=== PATIENT | female | born 1975 | race African-American/Black ===

== ENCOUNTER 2017-02-07 12:58 | Emergency (ER) | payer SELFPAY ==
[~2017-02-07] VITALS: Ht 175.3 cm; Wt 105.7 kg
[2017-02-07] MEDS ORDERED: VENL150C6 PO (13:16)
[2017-02-07] MEDS ORDERED: IBUPROFEN 400 MG TABLET. PO ONE (14:30)
[2017-02-07 14:31] VITALS: BP 139/94
--- NOTE | 2017-02-07 14:53 | RAD ---
Right upper extremity venous ultrasound, 02/07/2017: History: Right arm pain Duplex evaluation of the major veins of the right upper extremity was performed including grayscale, color-flow and spectral Doppler analysis. The right internal jugular, subclavian, axillary and paired brachial veins are patent. There is occlusive thrombus in the basilic vein in the upper arm extending into the forearm. The cephalic vein is patent. IMPRESSION: 1. Occlusive thrombus in the basilic vein in the right upper extremity. 2. No deep vein thrombosis is evident.
--- NOTE | 2017-02-07 15:03 | PHYS DOC ---
Past Medical History Past Medical History: Anxiety, DVT, Other Additional Past Medical Histor: PE Past Surgical History: Alcohol Use: Occasionally Drug Use: None Adult General Chief Complaint Chief Complaint: UPPER EXTREMITY PAIN HPI HPI 41-year-old female presenting to the emergency department with pain in her right upper extremity where she previously had a DVT. Pain is sharp mild intermittent nonradiating and not associated with swelling. She describes generalized nausea and intermittent dizziness over the past 7 days days. She states "I am here primarily to be evaluated for DVT and mild right arm." Review of systems is negative for chest pain shortness of breath fevers chills cough abdominal pain vomiting. All other review of systems is negative unless otherwise noted in history of present illness. ED course: 41-year-old female presenting to the emergency department today concerned that she may have redeveloped another DVT in her right upper arm. Triage vital signs afebrile with mild tachycardia. Otherwise unremarkable. Pertinent physical exam findings show her right upper extremity to be nonswollen. No edema. Palpable pulse. 2 second cap refill with normal motor and sensory function of the hand. Otherwise the remainder of her extremities are neurovascularly intact with a palpable pulse and nontender to palpation. The remainder the exam is unremarkable. Ultrasound obtained of the right upper extremity. Ultrasound shows superficial vein thrombosis without deep vein thrombosis. I recommend warm compresses and follow-up with her doctor. The patient was given ibuprofen for pain in her arm. The patient was then discharged home in stable condition to follow up with their primary care physician over the next 2-3 days. They were to return if their symptoms worsened or if they were concerned for any reason. [id number] discharge instructions and return precautions were given. Patient's questions were answered to their satisfaction. Patient is comfortable plan. Review of Systems Review of Systems SEE ABOVE. Current Medications Current Medications Current Medications Medications (Trade) Dose Ordered Sig/[facility] Start Time Stop Time Status Last Admin Dose Admin Ibuprofen (Motrin) 400 mg 1X ONCE 02/07/17 14:30 02/07/17 14:31 DC 02/07/17 14:31 400 MG Allergies Allergies Allergies Coded Allergies Type Severity Reaction Last Updated Verified No Known Drug Allergies 02/07/17 No Physical Exam Physical Exam SEE ABOVE Constitutional: Well developed, well nourished, no acute distress, non-toxic appearance. [] HENT: Normocephalic, atraumatic, bilateral external ears normal, oropharynx moist, no oral exudates, nose normal. [] Eyes: PERRLA, EOMI, conjunctiva normal, no discharge. [] Neck: Normal range of motion, no tenderness, supple, no stridor. [] Cardiovascular:Heart rate regular rhythm, no murmur [] Lungs & Thorax: Bilateral breath sounds clear to auscultation [] Abdomen: Bowel sounds normal, soft, no tenderness, no masses, no pulsatile masses. [] Skin: Warm, dry, no erythema, no rash. [] Back: No tenderness, no CVA tenderness. [] Extremities: No tenderness, no cyanosis, no clubbing, ROM intact, no edema. [] SEE ABOVE Neurologic: Alert and oriented X 3, normal motor function, normal sensory function, no focal deficits noted. [] Psychologic: Affect normal, judgement normal, mood normal. [] Current Patient Data Vital Signs Vital Signs Date Time Temp Pulse Resp B/P (MAP) Pulse Ox O2 Delivery O2 Flow Rate FiO2 02/07/17 14:31 80 19 139/94 (109) 99 Room Air 02/07/17 13:07 98.4 98.4 Lab Values Laboratory Tests Test 02/07/17 12:16 POC Urine HCG, Qualitative Hcg negative (Negative) EKG EKG [] Radiology/Procedures Radiology/Procedures [] Course & Med Decision Making Course & Med Decision Making Pertinent Labs and Imaging studies reviewed. (See chart for details) [] Dragon Disclaimer Dragon Disclaimer This electronic medical record was generated, in whole or in part, using a voice recognition dictation system. Departure Departure Impression: Primary Impression: Right arm pain Additional Impression: Superficial venous thrombosis of arm Disposition: 01 HOME, SELF-CARE Condition: STABLE Referrals: NO PCP (PCP) EPHRAIM BATISTA MD Additional Instructions: Thank you for allowing us to participate in your care today. I recommend warm compresses on affected area. Followup with your primary care physician in 3 days if your symptoms do not improve. Call your Primary Doctor tomorrow and inform them of your visit today. If you do not have a primary care provider you can ask for a list of our primary care providers. Return to the emergency department you have any new or concerning findings. This should be evaluated by the primary care physician and any necessary consulting services for continued management within a few days after discharge. Return to emergency room if you have any new or concerning symptoms including but not limited to fever, chills, nausea, vomiting, intractable pain, any new rashes, chest pain, shortness of air, uncontrolled bleeding, difficulty breathing, and/or vision loss. Problem Qualifiers ALEX RODRIGUEZ MD Feb 07, 2017 15:03
== END 2017-02-07 15:21 | disposition home or self-care (01) ==
LOC: ER 12:58
DX: I82.611 Acute embolism and thrombosis of superficial veins of right upper extremity (principal); F41.9 Anxiety disorder, unspecified
CPT/HCPCS: 81025; 93971; 99284-25

== ENCOUNTER 2017-09-26 03:52 | Emergency (ER) | payer MEDICAID ==
[2017-09-26] MEDS ORDERED: NAPROXEN 500 MG TABLET (04:26)
[2017-09-26] MEDS: NAPROXEN 500 MG TABLET PO (04:29)
== END 2017-09-26 04:36 | disposition home or self-care (01) ==
LOC: ER 03:52
DX: K08.89 Other specified disorders of teeth and supporting structures (principal); Z86.718 Personal history of other venous thrombosis and embolism
CPT/HCPCS: 99283

== ENCOUNTER 2018-08-24 14:35 | Emergency (ER) | payer MEDICAID, OTHER ==
[~2018-08-24] VITALS: Ht 175.3 cm; Wt 117.9 kg
[~2018-08-24 14:35] MED LIST: HYDR-3164 PO; NAPR-683 PO; VENL150C6 PO
[2018-08-24 14:45] VITALS: BP 128/86
[2018-08-24 15:25] LABS: BASO % 0 % (0-3); EOS # 0.1 x10^3/uL (0.0-0.7); EOS % 1 % (0-3); HEMATOCRIT 39.7 % (36.0-47.0); HEMOGLOBIN 13.6 g/dL (12.0-15.5); LYMPH # 2.4 x10^3/uL (1.0-4.8); LYMPH % 28 % (24-48); MEAN CORPUSCULAR HEMOGLOBIN 32 pg (25-35); MEAN CORPUSCULAR HGB CONC 34 g/dL (31-37); MEAN CORPUSCULAR VOLUME 93 fL (79-100); MONO # 0.4 x10^3/uL (0.0-1.1); MONO % 5 % (0-9); NEUT # 5.6 x10^3uL (1.8-7.7); NEUT % 66 % (31-73); PLATELET COUNT 364 x10^3/uL (140-400); RED BLOOD COUNT 4.26 x10^6/uL (3.50-5.40); RED CELL DISTRIBUTION WIDTH 14.2 % (11.5-14.5); WHITE BLOOD COUNT 8.5 x10^3/uL (4.0-11.0)
[2018-08-24 15:30] LABS: CALCIUM 8.9 mg/dL (8.5-10.1); CREATININE 0.8 mg/dL (0.6-1.0); GFR 95.2; POTASSIUM 4.3 mmol/L (3.5-5.1)
[2018-08-24 15:36] LABS: ALBUMIN 3.8 g/dL (3.4-5.0); TOTAL BILIRUBIN 0.4 mg/dL (0.2-1.0); TOTAL PROTEIN 7.7 g/dL (6.4-8.2)
[2018-08-24] MEDS ORDERED: IOHEXOL 350 MG/ML 100 ML VIAL. IV ONE (15:45)
--- NOTE | 2018-08-24 15:56 | PHYS DOC ---
Past Medical History Past Medical History: Anxiety, DVT, Other Additional Past Medical Histor: PE Past Surgical History: Alcohol Use: Occasionally Drug Use: None Adult General Chief Complaint Chief Complaint: CHEST PAIN HPI HPI 33-year-old female with a history of pulmonary emboli who is been on Coumadin for quite some time presents with sharp right sided chest pain, shortness of breath and dyspnea on exertion. She states she's recently been on a long train ride to [place]. She has been taking her Coumadin but she was told a couple days ago that her INR was only 1.3. She denies any cough. She denies hemoptysis. [] Review of Systems Review of Systems Constitutional: Denies fever or chills [] Eyes: Denies change in visual acuity, redness, or eye pain [] HENT: Denies nasal congestion or sore throat [] Respiratory: Denies cough or shortness of breath [] Cardiovascular: No additional information not addressed in HPI [] GI: Denies abdominal pain, nausea, vomiting, bloody stools or diarrhea [] : Denies dysuria or hematuria [] Musculoskeletal: Denies back pain or joint pain [] Integument: Denies rash or skin lesions [] Neurologic: Denies headache, focal weakness or sensory changes [] Endocrine: Denies polyuria or polydipsia [] All other systems were reviewed and found to be within normal limits, except as documented in this note. Current Medications Current Medications Current Medications Medications (Trade) Dose Ordered Sig/Tiki Start Time Stop Time Status Last Admin Dose Admin Info (CONTRAST GIVEN -- Rx MONITORING) 1 each PRN DAILY PRN 08/24/18 16:00 08/26/18 15:59 Iohexol (Omnipaque 350 Mg/ml) 100 ml 1X ONCE 08/24/18 15:45 08/24/18 15:46 DC 08/24/18 15:57 100 ML Allergies Allergies Allergies Coded Allergies Type Severity Reaction Last Updated Verified No Known Drug Allergies 02/07/17 No Physical Exam Physical Exam Constitutional: Well developed, well nourished, no acute distress, non-toxic appearance. [] HENT: Normocephalic, atraumatic, bilateral external ears normal, oropharynx moist, no oral exudates, nose normal. [] Eyes: PERRLA, EOMI, conjunctiva normal, no discharge. [] Neck: Normal range of motion, no tenderness, supple, no stridor. [] Cardiovascular:Heart rate regular rhythm, no murmur [] Lungs & Thorax: Bilateral breath sounds clear to auscultation [] Abdomen: Bowel sounds normal, soft, no tenderness, no masses, no pulsatile masses. [] Skin: Warm, dry, no erythema, no rash. [] Back: No tenderness, no CVA tenderness. [] Extremities: No tenderness, no cyanosis, no clubbing, ROM intact, no edema. [] Neurologic: Alert and oriented X 3, normal motor function, normal sensory function, no focal deficits noted. [] Psychologic: Affect normal, judgement normal, mood normal. [] Current Patient Data Vital Signs Vital Signs Date Time Temp Pulse Resp B/P (MAP) Pulse Ox O2 Delivery O2 Flow Rate FiO2 08/24/18 14:45 98.0 85 18 128/86 (100) 99 Room Air 98.0 Lab Values Laboratory Tests Test 08/24/18 14:55 White Blood Count 8.5 x10^3/uL (4.0-11.0) Red Blood Count 4.26 x10^6/uL (3.50-5.40) Hemoglobin 13.6 g/dL (12.0-15.5) Hematocrit 39.7 % (36.0-47.0) Mean Corpuscular Volume 93 fL (79-100) Mean Corpuscular Hemoglobin 32 pg (25-35) Mean Corpuscular Hemoglobin Concent 34 g/dL (31-37) Red Cell Distribution Width 14.2 % (11.5-14.5) Platelet Count 364 x10^3/uL (140-400) Neutrophils (%) (Auto) 66 % (31-73) Lymphocytes (%) (Auto) 28 % (24-48) Monocytes (%) (Auto) 5 % (0-9) Eosinophils (%) (Auto) 1 % (0-3) Basophils (%) (Auto) 0 % (0-3) Neutrophils # (Auto) 5.6 x10^3uL (1.8-7.7) Lymphocytes # (Auto) 2.4 x10^3/uL (1.0-4.8) Monocytes # (Auto) 0.4 x10^3/uL (0.0-1.1) Eosinophils # (Auto) 0.1 x10^3/uL (0.0-0.7) Basophils # (Auto) 0.0 x10^3/uL (0.0-0.2) Prothrombin Time 15.0 SEC (11.7-14.0) H Prothrombin Time INR 1.2 (0.8-1.1) H Sodium Level 139 mmol/L (136-145) Potassium Level 4.3 mmol/L (3.5-5.1) Chloride Level 104 mmol/L (98-107) Carbon Dioxide Level 28 mmol/L (21-32) Anion Gap 7 (6-14) Blood Urea Nitrogen 10 mg/dL (7-20) Creatinine 0.8 mg/dL (0.6-1.0) Estimated GFR (Cockcroft-Gault) 95.2 BUN/Creatinine Ratio 13 (6-20) Glucose Level 109 mg/dL (70-99) H Calcium Level 8.9 mg/dL (8.5-10.1) Total Bilirubin 0.4 mg/dL (0.2-1.0) Aspartate Amino Transferase (AST) 23 U/L (15-37) Alanine Aminotransferase (ALT) 25 U/L (14-59) Alkaline Phosphatase 67 U/L (46-116) Total Protein 7.7 g/dL (6.4-8.2) Albumin 3.8 g/dL (3.4-5.0) Albumin/Globulin Ratio 1.0 (1.0-1.7) Laboratory Tests 08/24/18 14:55 Laboratory Tests 08/24/18 14:55 EKG EKG [] Radiology/Procedures Radiology/Procedures [] Impressions: REASON: soa - hx of PE PROCEDURE: CT ANGIOGRAPHY CHEST EXAM: CT angiography of the chest with intravenous contrast. HISTORY: Shortness of breath. TECHNIQUE: Computed tomographic images of the chest were obtained following the administration of 80 cc Omnipaque 300 intravenous contrast according to angiography protocol. Multiplanar reformatting was performed and 3-dimensional maximum intensity projection images were obtained.. *One or more of the following individualized dose reduction techniques were utilized for this examination: 1. Automated exposure control. 2. Adjustment of the mA and/or kV according to patient size. 3. Use of iterative reconstruction technique. COMPARISON: 03/19/2015. FINDINGS: There is no evidence of pulmonary embolism. There is no aortic aneurysm or dissection. The heart is normal in size. No pathologically enlarged lymph node is seen. There is no pneumothorax or pleural effusion. There is no infiltrate or suspicious pulmonary nodule. There is minimal posterior dependent atelectasis. The spleen is upper normal in size. The upper abdomen is otherwise grossly unremarkable. There is no suspicious osseous lesion. There are few benign bone islands. IMPRESSION: No evidence of pulmonary embolism or alternative acute pulmonary finding. Course & Med Decision Making Course & Med Decision Making Pertinent Labs and Imaging studies reviewed. (See chart for details) [ED course: Evaluation reveals a 43-year-old female who was at high risk for pulmonary embolus. CT scan was negative for such. Her INR is only 1.2. Encouraged her to up her dose to 12.5 daily until she has her INR rechecked on Wednesday. I'll give her a dose of 10 mg here today.] Dragon Disclaimer Dragon Disclaimer This electronic medical record was generated, in whole or in part, using a voice recognition dictation system. Departure Departure Impression: Primary Impression: Non-cardiac chest pain Additional Impression: Pleurisy Disposition: 01 HOME, SELF-CARE Condition: STABLE Referrals: MELISSA QUEVEDO MD (PCP) Patient Instructions: Pleurisy Additional Instructions: Increase Coumadin to 12.5 mg daily until your rechecked by her primary doctor on Wednesday. Return to emergency department with any new or concerning symptoms Problem Qualifiers ROSEMARY FLOYD DO Aug 24, 2018 15:56
[2018-08-24] MEDS ORDERED: CONTRAST GIVEN. MC PRN (16:00)
--- NOTE | 2018-08-24 16:14 | RAD ---
EXAM: CT angiography of the chest with intravenous contrast. HISTORY: Shortness of breath. TECHNIQUE: Computed tomographic images of the chest were obtained following the administration of 80 cc Omnipaque 300 intravenous contrast according to angiography protocol. Multiplanar reformatting was performed and 3-dimensional maximum intensity projection images were obtained.. *One or more of the following individualized dose reduction techniques were utilized for this examination: 1. Automated exposure control. 2. Adjustment of the mA and/or kV according to patient size. 3. Use of iterative reconstruction technique. COMPARISON: 03/19/2015. FINDINGS: There is no evidence of pulmonary embolism. There is no aortic aneurysm or dissection. The heart is normal in size. No pathologically enlarged lymph node is seen. There is no pneumothorax or pleural effusion. There is no infiltrate or suspicious pulmonary nodule. There is minimal posterior dependent atelectasis. The spleen is upper normal in size. The upper abdomen is otherwise grossly unremarkable. There is no suspicious osseous lesion. There are few benign bone islands. IMPRESSION: No evidence of pulmonary embolism or alternative acute pulmonary finding. Electronically signed by: Queenie Jacinto MD (08/24/2018 4:11 PM) [place] [id number]
[2018-08-24] MEDS ORDERED: WARFARIN 5 MG TABLET. PO ONE (16:30)
== END 2018-08-24 16:40 | disposition home or self-care (01) ==
LOC: ER 14:35
DX: R07.89 Other chest pain (principal); R09.1 Pleurisy; F41.9 Anxiety disorder, unspecified; Z86.711 Personal history of pulmonary embolism; Z86.718 Personal history of other venous thrombosis and embolism; Z79.01 Long term (current) use of anticoagulants
CPT/HCPCS: 36415; 71275; 80053; 85025; 85610; 99284; Q9967

== ENCOUNTER 2019-04-03 14:27 | Emergency (ER) | payer OTHER ==
[~2019-04-03] VITALS: Ht 175.3 cm; Wt 117.9 kg
[2019-04-03 14:56] LABS: BASO % 1 % (0-3); EOS # 0.1 x10^3/uL (0.0-0.7); EOS % 1 % (0-3); HEMATOCRIT 37.9 % (36.0-47.0); HEMOGLOBIN 12.9 g/dL (12.0-15.5); LYMPH # 2.3 x10^3/uL (1.0-4.8); LYMPH % 31 % (24-48); MEAN CORPUSCULAR HEMOGLOBIN 32 pg (25-35); MEAN CORPUSCULAR HGB CONC 34 g/dL (31-37); MEAN CORPUSCULAR VOLUME 94 fL (79-100); MONO # 0.3 x10^3/uL (0.0-1.1); MONO % 5 % (0-9); NEUT # 4.7 x10^3/uL (1.8-7.7); NEUT % 63 % (31-73); PLATELET COUNT 336 x10^3/uL (140-400); RED BLOOD COUNT 4.02 x10^6/uL (3.50-5.40); RED CELL DISTRIBUTION WIDTH 14.1 % (11.5-14.5); WHITE BLOOD COUNT 7.5 x10^3/uL (4.0-11.0)
[2019-04-03] MEDS ORDERED: ASPIRIN CHEWABLE 81 MG TABLET. PO ONE (15:00)
--- NOTE | 2019-04-03 15:05 | PHYS DOC ---
Past Medical History Past Medical History: Anxiety, DVT, Other Additional Past Medical Histor: PE Past Surgical History: Alcohol Use: Occasionally Drug Use: None Adult General Chief Complaint Chief Complaint: CHEST PAIN [facility] HPI Patient is a 43-year-old female who presents to the emergency department for evaluation. She states since yesterday, she has had some anterior sharp right- sided chest discomfort, worse with deep breathing, questionable associated with some mild shortness of breath. Movement also seems to worsen the patient's symptoms. She has a history of a pulmonary embolism in the past, which she states developed from a right upper extremity DVT, and has had at least 2 pu lmonary embolii in the past. She states she takes warfarin, has taken faithfully without missing a dose. She states her last INR was a week ago at 1.3. She has a history of fluctuating INR, and states that she has had a difficult time maintaining a therapeutic level. She states that at least one time she had been considered for a DOAC, but for some reason is not currently on. She states that she sees Dr. Kylah Carcamo, and hematology at on this campus, and has had hypercoagulable workup testing in the past without a definitive diagnosis. Patient was seen in this emergency department earlier this year for similar symptoms and had a CT angiogram of her chest which was negative for pulmonary embolus. Review of Systems Review of Systems Constitutional: Denies fever or chills [] Eyes: Denies change in visual acuity, redness, or eye pain [] HENT: Denies nasal congestion or sore throat [] Respiratory: Denies cough or shortness of breath while at rest [] Cardiovascular: No additional information not addressed in HPI [] GI: Denies abdominal pain, nausea, vomiting, bloody stools or diarrhea [] : Denies dysuria or hematuria [] Musculoskeletal: Denies back pain or joint pain [] Integument: Denies rash or skin lesions [] Neurologic: Denies headache, focal weakness or sensory changes [] Endocrine: Denies polyuria or polydipsia [] All other systems were reviewed and found to be within normal limits, except as documented in this note. Current Medications Current Medications Current Medications Medications (Trade) Dose Ordered Sig/Tiki Start Time Stop Time Status Last Admin Dose Admin Aspirin (Children'S Aspirin) 324 mg 1X ONCE 04/03/19 15:00 04/03/19 15:01 DC 04/03/19 14:58 324 MG Allergies Allergies Allergies Coded Allergies Type Severity Reaction Last Updated Verified No Known Drug Allergies 02/07/17 No Physical Exam Physical Exam PHYSICAL EXAM: CONSTITUTIONAL: Well developed, well nourished HEAD: normocephalic, atraumatic EENT: PERRL, EOMI. Conjunctivae normal color, sclerae non-icteric; moist mucous membranes. NECK: Supple, non-tender; no meningismus. LUNGS: Lungs CTA, breathing even and unlabored. Normal air movement. HEART: Regular rate and rhythm, no murmur CHEST: No deformity; there is tenderness to palpation to the right anterior chest wall, which reproduces the patient's pain. ABDOMEN: The abdomen is soft, and non-tender, no masses or bruits. EXTREM: Normal ROM; no deformity, no calf tenderness. Normal pulses palpable in all extremities. There is no pedal edema. SKIN: No rash; no diaphoresis NEURO: Alert; normal speech and cognition; CN's grossly intact; strength grossly intact without focal deficit. BACK: No CVA TTP. Current Patient Data Vital Signs Vital Signs Date Time Temp Pulse Resp B/P (MAP) Pulse Ox O2 Delivery O2 Flow Rate FiO2 04/03/19 14:31 97.9 78 19 151/90 (110) 96 Room Air 97.9 Lab Values Laboratory Tests Test 04/03/19 14:49 White Blood Count 7.5 x10^3/uL (4.0-11.0) Red Blood Count 4.02 x10^6/uL (3.50-5.40) Hemoglobin 12.9 g/dL (12.0-15.5) Hematocrit 37.9 % (36.0-47.0) Mean Corpuscular Volume 94 fL (79-100) Mean Corpuscular Hemoglobin 32 pg (25-35) Mean Corpuscular Hemoglobin Concent 34 g/dL (31-37) Red Cell Distribution Width 14.1 % (11.5-14.5) Platelet Count 336 x10^3/uL (140-400) Neutrophils (%) (Auto) 63 % (31-73) Lymphocytes (%) (Auto) 31 % (24-48) Monocytes (%) (Auto) 5 % (0-9) Eosinophils (%) (Auto) 1 % (0-3) Basophils (%) (Auto) 1 % (0-3) Neutrophils # (Auto) 4.7 x10^3/uL (1.8-7.7) Lymphocytes # (Auto) 2.3 x10^3/uL (1.0-4.8) Monocytes # (Auto) 0.3 x10^3/uL (0.0-1.1) Eosinophils # (Auto) 0.1 x10^3/uL (0.0-0.7) Basophils # (Auto) 0.0 x10^3/uL (0.0-0.2) Prothrombin Time 26.8 SEC (11.7-14.0) H Prothrombin Time INR 2.5 (0.8-1.1) H D-Dimer (Lia) < 0.27 ug/mlFEU Sodium Level 141 mmol/L (136-145) Potassium Level 3.9 mmol/L (3.5-5.1) Chloride Level 104 mmol/L (98-107) Carbon Dioxide Level 27 mmol/L (21-32) Anion Gap 10 (6-14) Blood Urea Nitrogen 14 mg/dL (7-20) Creatinine 0.9 mg/dL (0.6-1.0) Estimated GFR (Cockcroft-Gault) 83.1 BUN/Creatinine Ratio 16 (6-20) Glucose Level 136 mg/dL (70-99) H Calcium Level 8.7 mg/dL (8.5-10.1) Total Bilirubin 0.3 mg/dL (0.2-1.0) Aspartate Amino Transferase (AST) 20 U/L (15-37) Alanine Aminotransferase (ALT) 15 U/L (14-59) Alkaline Phosphatase 69 U/L (46-116) Troponin I Quantitative < 0.017 ng/mL (0.000-0.055) Total Protein 7.5 g/dL (6.4-8.2) Albumin 3.8 g/dL (3.4-5.0) Albumin/Globulin Ratio 1.0 (1.0-1.7) Serum Test, Qualitative Negative (NEG) Laboratory Tests 04/03/19 14:49 Laboratory Tests 04/03/19 14:49 EKG EKG [] Normal sinus rhythm at a rate of 82 beats for minute, left axis deviation, normal intervals. There are no acute ischemic ST/T changes. There are no old EKGs available for comparison. Radiology/Procedures Radiology/Procedures PROCEDURE: CHEST PA & LATERAL CHEST PA LATERAL History: Chest pain Comparison: None. Findings: No consolidation or pleural effusion. Normal heart size. No pneumothorax. Impression: 1. No acute cardiopulmonary process. [] Course & Med Decision Making Course & Med Decision Making Pertinent Labs and Imaging studies reviewed. (See chart for details) [] 4:10 PM: The patient's condition remained stable. She is feeling well at this time. Her exam and history is consistent with musculoskeletal chest pain. Her INR is therapeutic d-dimer is negative. She has a follow-up PCP appointment tomorrow which I encouraged her to keep. Return precautions were discussed in detail. Her HEART score is a 0. Dragon Disclaimer Dragon Disclaimer This electronic medical record was generated, in whole or in part, using a voice recognition dictation system. Departure Departure Impression: Primary Impression: Chest wall pain Disposition: HOME, SELF-CARE Condition: STABLE Referrals: MELISSA QUEVEDO MD (PCP) Patient Instructions: Chest Pain (Nonspecific), Musculoskeletal Pain Additional Instructions: Tylenol 650-1,000 mg every 6 hours may help improve your pain. Applying a heating pad to the affected area may help improve your pain. NURYS HORTA MD Apr 03, 2019 15:05
--- NOTE | 2019-04-03 15:16 | RAD ---
CHEST PA LATERAL History: Chest pain Comparison: None. Findings: No consolidation or pleural effusion. Normal heart size. No pneumothorax. Impression: 1. No acute cardiopulmonary process. Electronically signed by: Uziel Yi DO (04/03/2019 3:13 PM) [id number]
[2019-04-03 15:27] LABS: CALCIUM 8.7 mg/dL (8.5-10.1); CREATININE 0.9 mg/dL (0.6-1.0); GFR 83.1; POTASSIUM 3.9 mmol/L (3.5-5.1)
[2019-04-03 15:33] LABS: ALBUMIN 3.8 g/dL (3.4-5.0); TOTAL BILIRUBIN 0.3 mg/dL (0.2-1.0); TOTAL PROTEIN 7.5 g/dL (6.4-8.2)
[2019-04-03 15:49] LABS: PREG TEST PT QUAL NEGATIVE (NEG)
[2019-04-03 16:07] LABS: PROTHROMBIN TIME PATIENT 26.8 SEC (11.7-14.0)
[2019-04-03 16:34] VITALS: BP 141/96
--- NOTE | 2019-04-04 07:33 | EKG ---
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
== END 2019-04-03 16:39 | disposition home or self-care (01) ==
LOC: ER 14:27
DX: R07.89 Other chest pain (principal); R06.02 Shortness of breath; Z86.711 Personal history of pulmonary embolism; Z86.718 Personal history of other venous thrombosis and embolism; F41.9 Anxiety disorder, unspecified
CPT/HCPCS: 36415; 71046; 80053; 84484; 84703; 85025; 85379; 85610; 93005; 99285-25

== ENCOUNTER 2019-10-24 16:48 | Emergency (ER) | payer OTHER ==
[~2019-10-24] VITALS: Ht 175.3 cm; Wt 120.4 kg
[2019-10-24 16:55] VITALS: BP 143/94
[2019-10-24] MEDS ORDERED: HYDROcodone/APAP 5/325MG 1 TAB TABLET PO ONE (17:00)
[2019-10-24] MEDS ORDERED: LIDOCAINE 1%/EPI 1:100,000 20 ML VIAL. INJ ONE (17:00)
--- NOTE | 2019-10-24 17:04 | PHYS DOC ---
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 Does not extend over joint. Rates pain a 8/10. Patient states tetanus up to date. Review of Systems: Review of Systems: Integument: Denies rash. Laceration. [] Heart Score: Risk Factors: Risk Factors: DM, Current or recent (<one month) smoker, HTN, HLP, family history of CAD, obesity. Risk Scores: Score 0 - 3: 2.5% MACE over next 6 weeks - Discharge Home Score 4 - 6: 20.3% MACE over next 6 weeks - Admit for Clinical Observation Score 7 - 10: 72.7% MACE over next 6 weeks - Early Invasive Strategies Current Medications: Current Medications Medications (Trade) Dose Ordered Sig/Tiki Start Time Stop Time Status Last Admin Dose Admin Acetaminophen/ Hydrocodone Bitart (Lortab 5/325) 1 tab 1X ONCE 10/24/19 17:00 10/24/19 17:01 UNV Lidocaine/ Epinephrine (LIDOCAINE 1%-EPI 1:100,000 Multi-Dose) 20 ml 1X ONCE 10/24/19 17:00 10/24/19 17:01 UNV Allergies: Allergies: Allergies Coded Allergies Type Severity Reaction Last Updated Verified No Known Drug Allergies 02/07/17 No Physical Exam: PE: Constitutional: Well developed, well nourished, no acute distress, non-toxic appearance. [] HENT: Normocephalic, atraumatic, bilateral external ears normal, oropharynx moist, no oral exudates, nose normal. [] Eyes: PERRLA, EOMI, conjunctiva normal, no discharge. [] Neck: Normal range of motion, no tenderness, supple, no stridor. [] Cardiovascular:Heart rate regular rhythm, no murmur [] Lungs & Thorax: Bilateral breath sounds clear to auscultation [] Abdomen: Bowel sounds normal, soft, no tenderness, no masses, no pulsatile masses. [] Skin: Warm, dry, no erythema, no rash. Laceration to Right pad of foot. [] Back: No tenderness, no CVA tenderness. [] Extremities: No tenderness, no cyanosis, no clubbing, ROM intact, no edema. [] Neurologic: Alert and oriented X 3, normal motor function, normal sensory function, no focal deficits noted. [] Psychologic: Affect normal, judgement normal, mood normal. [] EKG: EKG: [] Radiology/Procedures: Radiology/Procedures: [] Impression: [id number] [place] [address] IMAGING REPORT Signed PATIENT: MOY BROWNE NACCOUNT: [id number] : 1975 LOCATION: ER AGE: 44 SEX: F EXAM STATUS: REG ER ORD. PHYSICIAN: CRISTEL PUTNAM APRN REASON: laceration to bottom of foot PROCEDURE: FOOT RIGHT 3V Examination: FOOT RIGHT 3V History: Laceration of the plantar aspect of the foot Comparison/Correlation: None Findings: Total 3 images of the right foot were obtained. Joint spaces are normal. No radiopaque foreign body. No fracture or bone destruction. No significant degenerative change. Questionable soft tissue defect along the plantar aspect of the foot which may relate to laceration injury is noted at the distal metatarsal level on the lateral view. Impression: No radiopaque foreign body. Electronically signed by: Gavino Fierro MD (10/24/2019 5:14 PM) [id number] DICTATED and SIGNED BY: GAVINO FIERRO MD DATE: 10/24/19 1714 Course & Med Decision Making: Course & Med Decision Making Pertinent Labs and Imaging studies reviewed. (See chart for details) Denies numbness or tingling. Can wiggle all toes and no laxity of any joints. Cap refill less than 3 seconds. Skin pink warm and dry. Edges are approximated. Laceration repair Location: Right pad of foot laceration. Approximately 1.5 inches long Local anesthesia: 1% Lidocaine with Epi Interrupted sutures/Internal sutures: 9 sutures Nerve/ligament/muscle damage: None Cleaning and irrigation: Saline and Chlorhexidine The appropriate timeout was taken. The area was prepped and draped in the usual sterile fashion. The wound was copiously irrigated with normal saline and chlorhexidine. Patient tolerated well without complication. Dressing was applied to the area follow-up education is given to observe for signs and symptoms of infection, bleeding and to follow-up promptly if these occur. P atient can return in 48 hours for a wound recheck. Sutures to be removed in 7 to 10 days. Patient is placed in a post op shoe. [] Dragon Disclaimer: Dragon Disclaimer: This electronic medical record was generated, in whole or in part, using a voice recognition dictation system. Departure Departure Impression: Primary Impression: Laceration Disposition: HOME, SELF-CARE Condition: STABLE Referrals: MELISSA QUEVEDO MD (PCP) Patient Instructions: Laceration Care, Adult Additional Instructions: Return to ED in 10 days for suture removal. Keep clean and covered. Scripts Hydrocodone/Apap 5-325 (NORCO 5-325 TABLET) 1 Each Tablet 1 TAB PO PRN Q6HRS PRN for PAIN, #6 TAB 0 Refills Prov: CRISTEL PUTNAM APRN 10/24/19 CRISTEL PUTNAM APRN October 24, 2019 17:04
--- NOTE | 2019-10-24 17:17 | RAD ---
Examination: FOOT RIGHT 3V History: Laceration of the plantar aspect of the foot Comparison/Correlation: None Findings: Total 3 images of the right foot were obtained. Joint spaces are normal. No radiopaque foreign body. No fracture or bone destruction. No significant degenerative change. Questionable soft tissue defect along the plantar aspect of the foot which may relate to laceration injury is noted at the distal metatarsal level on the lateral view. Impression: No radiopaque foreign body. Electronically signed by: Gavino Sheehan MD (10/24/2019 5:14 PM) [id number]
[2019-10-24] MEDS ORDERED: HYDR-3164 PO (17:51)
== END 2019-10-24 18:16 | disposition home or self-care (01) ==
LOC: ER 16:48
DX: S91.311A Laceration without foreign body, right foot, initial encounter (principal); Z86.718 Personal history of other venous thrombosis and embolism; Z86.711 Personal history of pulmonary embolism; W22.8XXA Striking against or struck by other objects, initial encounter; Y93.89 Activity, other specified; Y92.89 Other specified places as the place of occurrence of the external cause; Y99.8 Other external cause status
CPT/HCPCS: 12002; 73630; 99283; J3490

== ENCOUNTER 2020-04-18 01:06 | Emergency (ER) | payer OTHER ==
[~2020-04-18] VITALS: Ht 170.2 cm; Wt 90.9 kg
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
[2020-04-18] MEDS ORDERED: HYDROcodone/APAP 5/325MG 1 TAB TABLET PO ONE (02:30)
[2020-04-18 02:44] LABS: BASO # 0.1 x10^3/uL (0.0-0.2); BASO % 1 % (0-3); EOS # 0.1 x10^3/uL (0.0-0.7); EOS % 2 % (0-3); HEMATOCRIT 37.3 % (36.0-47.0); HEMOGLOBIN 12.9 g/dL (12.0-15.5); LYMPH # 2.5 x10^3/uL (1.0-4.8); LYMPH % 36 % (24-48); MEAN CORPUSCULAR HEMOGLOBIN 32 pg (25-35); MEAN CORPUSCULAR HGB CONC 35 g/dL (31-37); MEAN CORPUSCULAR VOLUME 94 fL (79-100); MONO # 0.3 x10^3/uL (0.0-1.1); MONO % 4 % (0-9); NEUT % 58 % (31-73); PLATELET COUNT 343 x10^3/uL (140-400); RED BLOOD COUNT 3.99 x10^6/uL (3.50-5.40); WHITE BLOOD COUNT 6.9 x10^3/uL (4.0-11.0)
[2020-04-18 02:49] LABS: CALCIUM 8.6 mg/dL (8.5-10.1); CREATININE 0.8 mg/dL (0.6-1.0); GFR 94.7; POTASSIUM 3.6 mmol/L (3.5-5.1)
[2020-04-18 04:06] LABS: PROTHROMBIN TIME PATIENT 21.9 SEC (11.7-14.0)
[2020-04-18 04:07] VITALS: BP 142/89
[2020-04-18] MEDS ORDERED: ACET1TAB33 PO (04:31)
== END 2020-04-18 04:40 | disposition home or self-care (01) ==
LOC: ER 01:06
DX: S20.219A Contusion of unspecified front wall of thorax, initial encounter (principal); Z86.718 Personal history of other venous thrombosis and embolism; Z79.01 Long term (current) use of anticoagulants; Z86.711 Personal history of pulmonary embolism; V40.5XXA Car driver injured in collision with pedestrian or animal in traffic accident, initial encounter; Y92.488 Other paved roadways as the place of occurrence of the external cause; Y93.89 Activity, other specified; Y99.8 Other external cause status
CPT/HCPCS: 36415; 71045; 80048; 81025; 85025; 85610; 93005; 99285